=== PATIENT | male | born 1995 | race Caucasian/White ===

== ENCOUNTER 2018-05-12 23:07 | Emergency (ER) | payer SELFPAY ==
[~2018-05-12] VITALS: Ht 165.1 cm; Wt 59.1 kg
[2018-05-13 00:22] LABS: APPEARANCE,URINE CLEAR (CLEAR); BILIRUBIN,URINE NEGATIVE (NEGATIVE); GLUCOSE, URINE (UA) NEGATIVE (NEGATIVE); KETONES,URINE NEGATIVE (NEGATIVE); LEUKOCYTE ESTERASE ,URINE NEGATIVE (NEGATIVE); NITRATE,URINE NEGATIVE (NEGATIVE); OCCULT BLOOD,URINE NEGATIVE (NEGATIVE); PROTEIN,URINE NEGATIVE (NEGATIVE); UROBILINOGEN,URINE 0.2 mg/dL (<=1.0)
[2018-05-13 00:27] LABS: AMPHET/METH SCREEN,URINE NEGATIVE (NEGATIVE); BARBITURATE SCREEN, URINE NEGATIVE (NEGATIVE); BENZODIAZEPINES SCREEN,URINE NEGATIVE (NEGATIVE); CANNABINOID SCREEN,URINE POSITIVE (NEGATIVE); COCAINE SCREEN,URINE NEGATIVE (NEGATIVE); METHADONE SCREEN, URINE NEGATIVE (NEGATIVE); OPIATE SCREEN,URINE NEGATIVE (NEGATIVE)
[2018-05-13 00:28] LABS: PHENCYCLIDINE SCREEN,URINE NEGATIVE (NEGATIVE)
[2018-05-13] MEDS ORDERED: SODIUM CHLORIDE 0.9% 1,000 ML IV ONE (03:45)
[2018-05-13 04:46] LABS: BASOPHILS % (AUTO) 0.4 % (0.0-2.0); EOSINOPHILS % (AUTO) 0.8 % (1.0-6.0); HEMATOCRIT 44.4 % (41-53); HEMOGLOBIN 14.8 g/dL (13.5-17.5); LYMPHOCYTES # (AUTO) 2.1 K/uL (1.0-4.8); LYMPHOCYTES % (AUTO) 20.4 % (22.0-44.0); MEAN CORPUSCULAR HEMOGLOBIN 27.5 pg (26.0-34.0); MEAN CORPUSCULAR HGB CONC 33.4 G/dL (31.0-37.0); MEAN CORPUSCULAR VOLUME 82 fL (80-100); MONOCYTES # (AUTO) 0.8 K/uL (0.1-1.0); MONOCYTES % (AUTO) 7.7 % (2.0-9.0); NEUTROPHILS # (AUTO) 7.2 K/uL (1.8-7.7); NEUTROPHILS % (AUTO) 70.7 % (40.0-70.0); PLATELET COUNT (AUTO) 286 K/uL (150-450); RED BLOOD CELL COUNT(AUTO) 5.39 MIL/uL (4.50-5.90); RED CELL DISTRIBUTION WIDTH 13.1 % (11.5-14.5)
[2018-05-13 04:56] LABS: ANION GAP 3 mmol/L (8-16); CALCIUM, TOTAL 8.7 mg/dL (8.8-10.5); CARBON DIOXIDE 33 mmol/L (22-29); CHLORIDE 102 mmol/L (98-107); CREATININE 0.71 mg/dL (0.60-1.30); GLOMERULAR FILTR. RATE CALC > 60 mL/min (>60); GLUCOSE,RANDOM 106 mg/dL (70-110); POTASSIUM 3.4 mmol/L (3.5-5.1); SODIUM SERUM 138 mmol/L (136-145); UREA NITROGEN, BLOOD 15 mg/dL (7-18)
[2018-05-13 05:09] LABS: SALICYLATE < 2.8 mg/dL (2.8-20.0)
[2018-05-13] MEDS ORDERED: POTASSIUM CHLORIDE 20 MEQ ER TABLET PO ONE (05:15)
[2018-05-13 05:20] LABS: ALANINE AMINOTRANSFERASE 54 U/L (12-78); ALBUMIN 3.7 g/dL (3.4-5.0); ALKALINE PHOSPHATASE 76 U/L (46-116); ASPARTATE AMINOTRANSFERASE 39 U/L (15-37); BILIRUBIN,TOTAL 0.1 mg/dL (0.1-1.0); CKMB RELATIVE INDEX 1.7 % (0.0-4.0); CREATINE KINASE MB 13.8 ng/mL (0-5); CREATINE KINASE, TOTAL 825 U/L (39-308); LIPASE 161 U/L (73-393); TOTAL PROTEIN, SERUM 6.8 g/dL (6.4-8.2)
[2018-05-13 05:22] LABS: ACETAMINOPHEN < 2 mcg/mL (10-30)
[2018-05-13 08:14] VITALS: BP 132/76
== END 2018-05-13 08:17 | disposition home or self-care (01) ==
LOC: EMS 23:09
DX: F31.9 Bipolar disorder, unspecified (principal); G47.00 Insomnia, unspecified; R46.89 Other symptoms and signs involving appearance and behavior; E87.6 Hypokalemia; R53.1 Weakness; F15.90 Other stimulant use, unspecified, uncomplicated; F11.90 Opioid use, unspecified, uncomplicated; F12.90 Cannabis use, unspecified, uncomplicated; F17.210 Nicotine dependence, cigarettes, uncomplicated
CPT/HCPCS: 36415; 70450; 80053; 80307; 81003; 82550; 82553; 83690; 85025; 93005; 96360; 96361; 99285; 99406; G0480 ×2; G0481; J7030

== ENCOUNTER 2018-08-20 22:03 | Inpatient (IN) | payer MEDICAID ==
[~2018-08-20] VITALS: Ht 165.1 cm; Wt 60.5 kg
[2018-08-20] MEDS ORDERED: LORazepam 2 MG/ML VIAL ONE (22:15)
[2018-08-20] MEDS ORDERED: HALOPERIDOL LACTATE 5 MG/ML VIAL ONE (22:16)
[2018-08-20] MEDS ORDERED: DiphenhydrAMINE HCL 50 MG/ML VIAL ONE (22:16)
[2018-08-20] MEDS ORDERED: HALOPERIDOL LACTATE 5 MG/ML VIAL IM ONE (22:30)
[2018-08-20] MEDS ORDERED: DiphenhydrAMINE HCL 50 MG/ML VIAL IM ONE (22:30)
[2018-08-20] MEDS ORDERED: LORazepam 2 MG/ML VIAL IM ONE (22:30)
[2018-08-20 23:36] LABS: BASOPHILS % (AUTO) 0.6 % (0.0-2.0); EOSINOPHILS % (AUTO) 1.3 % (1.0-6.0); HEMATOCRIT 45.2 % (41-53); HEMOGLOBIN 15.4 g/dL (13.5-17.5); LYMPHOCYTES # (AUTO) 2.4 K/uL (1.0-4.8); LYMPHOCYTES % (AUTO) 23.7 % (22.0-44.0); MEAN CORPUSCULAR HEMOGLOBIN 28.4 pg (26.0-34.0); MEAN CORPUSCULAR VOLUME 84 fL (80-100); MONOCYTES # (AUTO) 0.7 K/uL (0.1-1.0); MONOCYTES % (AUTO) 6.5 % (2.0-9.0); NEUTROPHILS % (AUTO) 67.9 % (40.0-70.0); PLATELET COUNT (AUTO) 300 K/uL (150-450); RED BLOOD CELL COUNT(AUTO) 5.42 MIL/uL (4.50-5.90); RED CELL DISTRIBUTION WIDTH 12.6 % (11.5-14.5)
[2018-08-20 23:47] LABS: ANION GAP 7 mmol/L (8-16); CALCIUM, TOTAL 8.9 mg/dL (8.8-10.5); CARBON DIOXIDE 28 mmol/L (22-29); CHLORIDE 102 mmol/L (98-107); GLOMERULAR FILTR. RATE CALC > 60 mL/min (>60); GLUCOSE,RANDOM 91 mg/dL (70-110); POTASSIUM 3.8 mmol/L (3.5-5.1); SODIUM SERUM 137 mmol/L (136-145); UREA NITROGEN, BLOOD 18 mg/dL (7-18)
[2018-08-20 23:53] LABS: ALANINE AMINOTRANSFERASE 83 U/L (12-78); ALBUMIN 3.9 g/dL (3.4-5.0); ALKALINE PHOSPHATASE 68 U/L (46-116); ASPARTATE AMINOTRANSFERASE 121 U/L (15-37); BILIRUBIN,TOTAL 0.5 mg/dL (0.1-1.0); TOTAL PROTEIN, SERUM 7.3 g/dL (6.4-8.2)
[2018-08-21 00:44] LABS: AMPHET/METH SCREEN,URINE NEGATIVE (NEGATIVE); BARBITURATE SCREEN, URINE NEGATIVE (NEGATIVE); BENZODIAZEPINES SCREEN,URINE NEGATIVE (NEGATIVE); CANNABINOID SCREEN,URINE POSITIVE (NEGATIVE); COCAINE SCREEN,URINE NEGATIVE (NEGATIVE); METHADONE SCREEN, URINE NEGATIVE (NEGATIVE); OPIATE SCREEN,URINE NEGATIVE (NEGATIVE); PHENCYCLIDINE SCREEN,URINE NEGATIVE (NEGATIVE)
[2018-08-21] MEDS ORDERED: ZOLPIDEM TARTRATE 10 MG TABLET PO PRN (04:30)
[2018-08-21 14:45] VITALS: BP 107/75
[2018-08-21 16:00] VITALS: BP 115/66
[2018-08-22 06:38] VITALS: BP 100/60
[2018-08-22 08:11] VITALS: BP 119/74
[2018-08-22 08:18] LABS: HEMOGLOBIN A1C 5.1 % (4.5-6.2)
[2018-08-22 08:36] LABS: CHOL/HDL RATIO 2.6 (4.2-7.3); FREE T4 (FREE THYROXINE) 0.99 ng/dL (0.76-1.46)
[2018-08-22 08:37] LABS: THYROID STIMULATING HORMONE 1.13 uIU/mL (0.36-3.74)
[2018-08-22] MEDS ORDERED: PETROLATUM,WHITE 71 GM JELLY TP PRN (12:30)
[2018-08-22] MEDS ORDERED: NICOTINE 14 MG/24 HOUR PATCH TD PRN (12:30)
[2018-08-22] MEDS ORDERED: GuaiFENesin/D-METHORPHAN [SUGAR-FREE] 200-20MG/10 ML SYRUP UDCUP PO PRN (12:30)
[2018-08-22] MEDS ORDERED: ACETAMINOPHEN 325 MG TABLET PO PRN (12:30)
[2018-08-22] MEDS ORDERED: DOCUSATE SODIUM 100 MG CAPSULE PO PRN (12:30)
[2018-08-22] MEDS ORDERED: LOPERAMIDE HCL 2 MG CAPSULE PO PRN (12:30)
[2018-08-22] MEDS ORDERED: ONDANSETRON HCL 4 MG TABLET PO PRN (12:30)
[2018-08-22] MEDS ORDERED: IBUPROFEN 400 MG TABLET PO PRN (12:30)
[2018-08-22] MEDS ORDERED: MAG HYDROX/AL HYDROX/SIMETH ES 30 ML SUSPENSION UDCUP PO PRN (12:30)
[2018-08-22] MEDS ORDERED: ALBUTEROL SULFATE HFA 90 MCG/PUFF 8 GM INHALER IH PRN (12:30)
[2018-08-22] MEDS ORDERED: CloNIDine HCL 0.1 MG TABLET PO PRN (12:30)
[2018-08-22] MEDS ORDERED: MAGNESIUM HYDROXIDE SUSPENSION 30 ML UDCUP PO PRN (12:30)
[2018-08-22 16:00] VITALS: BP 128/66
[2018-08-22] MEDS: LORazepam 2 MG TABLET PO PRN (16:28)
[2018-08-22] MEDS: OLANZapine 5 MG TABLET PO SCH (16:28)
[2018-08-23 01:50] VITALS: BP 123/78
[2018-08-23 08:09] VITALS: BP 124/76
[2018-08-23] MEDS: OLANZapine 5 MG TABLET PO SCH (09:38)
[2018-08-23] MEDS: LORazepam 2 MG TABLET PO PRN (16:28)
[2018-08-23] MEDS: OLANZapine 7.5 MG TABLET PO SCH (16:28)
[2018-08-23] MEDS ORDERED: OLANZapine 5 MG TABLET PO SCH (17:00)
[2018-08-23 17:04] VITALS: BP 115/83
[2018-08-24 07:26] VITALS: BP 118/78
[2018-08-24 08:22] VITALS: BP 127/75
[2018-08-24] MEDS: HALOPERIDOL 5 MG TABLET PO PRN ×2 (08:36→16:59)
[2018-08-24] MEDS: LORazepam 2 MG TABLET PO PRN ×2 (08:36→16:59)
[2018-08-24] MEDS: OLANZapine 7.5 MG TABLET PO SCH (08:36)
[2018-08-24 16:08] VITALS: BP 109/61
[2018-08-24] MEDS: OLANZapine 10 MG TABLET PO SCH (16:59)
[2018-08-25 06:18] VITALS: BP 100/63
[2018-08-25] MEDS: OLANZapine 10 MG TABLET PO SCH ×2 (08:09→16:14)
[2018-08-25 08:41] VITALS: BP 126/74
[2018-08-25] MEDS: HALOPERIDOL 5 MG TABLET PO PRN (10:48)
[2018-08-25] MEDS: LORazepam 2 MG TABLET PO PRN (10:48)
[2018-08-25 16:19] VITALS: BP 110/72
[2018-08-25] MEDS ORDERED: OLAN10TA3 PO (16:54)
== END 2018-08-25 19:15 | disposition home or self-care (01) | DRG 750 ==
LOC: EMS 22:04 → B3A 08-21 13:22
PROVIDERS: ADMIT Psychiatry & Neurology Psychiatry; ATTEND Psychiatry & Neurology Psychiatry
DX: F20.0 Paranoid schizophrenia (principal); Z78.1 Physical restraint status; F10.10 Alcohol abuse, uncomplicated; F43.10 Post-traumatic stress disorder, unspecified; F12.90 Cannabis use, unspecified, uncomplicated; F17.210 Nicotine dependence, cigarettes, uncomplicated; F11.90 Opioid use, unspecified, uncomplicated; F14.90 Cocaine use, unspecified, uncomplicated; R74.0 Nonspecific elevation of levels of transaminase and lactic acid dehydrogenase [LDH]; Z28.21 Immunization not carried out because of patient refusal; Z59.0 Homelessness; Z71.41 Alcohol abuse counseling and surveillance of alcoholic; Z71.51 Drug abuse counseling and surveillance of drug abuser; Z91.19 Patient's noncompliance with other medical treatment and regimen; Z79.899 Other long term (current) drug therapy
CPT/HCPCS: 51701; 80074; 83036; 84439; 84443; 96372; 99291; G0480; J1200; J1630; J2060

== ENCOUNTER 2018-11-17 22:31 | Emergency (ER) | payer MEDICAID ==
[~2018-11-17] VITALS: Ht 167.6 cm; Wt 81.8 kg
[~2018-11-17 22:31] MED LIST: OLAN10TA3 PO
[2018-11-18] MEDS ORDERED: NAPROXEN 250 MG TABLET PO ONE (05:30)
[2018-11-18 05:39] VITALS: BP 126/70
== END 2018-11-18 05:40 | disposition home or self-care (01) ==
LOC: EMS 22:32
DX: S22.31XA Fracture of one rib, right side, initial encounter for closed fracture (principal); M25.572 Pain in left ankle and joints of left foot; F31.9 Bipolar disorder, unspecified; F12.90 Cannabis use, unspecified, uncomplicated; Z59.0 Homelessness; Y35.811A Legal intervention involving manhandling, law enforcement official injured, initial encounter; Y93.89 Activity, other specified; Y92.89 Other specified places as the place of occurrence of the external cause; Y99.8 Other external cause status
CPT/HCPCS: 71101

== ENCOUNTER 2019-06-21 16:07 | Emergency (ER) | payer MEDICAID ==
[~2019-06-21] VITALS: Ht 167.6 cm; Wt 63.6 kg
[2019-06-21] MEDS ORDERED: ACETAMINOPHEN 500 MG TABLET PO ONE (18:30)
[2019-06-21] MEDS ORDERED: CEPHALEXIN MONOHYDRATE 500 MG CAPSULE PO ONE (18:30)
[2019-06-21 19:02] VITALS: BP 118/70
== END 2019-06-21 19:57 | disposition home or self-care (01) ==
LOC: EMS 16:07
DX: S91.002A Unspecified open wound, left ankle, initial encounter (principal); S01.00XA Unspecified open wound of scalp, initial encounter; R03.0 Elevated blood-pressure reading, without diagnosis of hypertension; F31.9 Bipolar disorder, unspecified; F12.90 Cannabis use, unspecified, uncomplicated; W22.01XA Walked into wall, initial encounter; Y93.89 Activity, other specified; Y92.89 Other specified places as the place of occurrence of the external cause; Y99.8 Other external cause status

== ENCOUNTER 2020-04-03 09:33 | Inpatient (IN) | payer MEDICAID ==
[~2020-04-03] VITALS: Ht 172.7 cm; Wt 56.2 kg
[2020-04-03] MEDS ORDERED: ZOLPIDEM TARTRATE 10 MG TABLET PO PRN (12:15)
[2020-04-03] MEDS ORDERED: HALOPERIDOL 5 MG TABLET PO PRN (12:15)
[2020-04-03 12:16] LABS: BASOPHILS % (AUTO) 0.5 % (0.0-2.0); EOSINOPHILS % (AUTO) 1.4 % (1.0-6.0); HEMATOCRIT 45.5 % (41-53); HEMOGLOBIN 14.7 g/dL (13.5-17.5); LYMPHOCYTES # (AUTO) 2.3 K/uL (1.0-4.8); LYMPHOCYTES % (AUTO) 27.6 % (22.0-44.0); MEAN CORPUSCULAR HEMOGLOBIN 27.2 pg (26.0-34.0); MEAN CORPUSCULAR HGB CONC 32.4 G/dL (31.0-37.0); MEAN CORPUSCULAR VOLUME 84 fL (80-100); MONOCYTES # (AUTO) 0.7 K/uL (0.1-1.0); MONOCYTES % (AUTO) 8.5 % (2.0-9.0); NEUTROPHILS # (AUTO) 5.3 K/uL (1.8-7.7); PLATELET COUNT (AUTO) 336 K/uL (150-450); RED CELL DISTRIBUTION WIDTH 13.4 % (11.5-14.5)
[2020-04-03 12:22] LABS: ANION GAP 10 mmol/L (8-16); CARBON DIOXIDE 26 mmol/L (22-29); CHLORIDE 107 mmol/L (98-107); CREATININE 0.64 mg/dL (0.60-1.30); GLOMERULAR FILTR. RATE CALC > 60 mL/min (>60); GLUCOSE,RANDOM 69 mg/dL (70-110); POTASSIUM 3.9 mmol/L (3.5-5.1); SODIUM SERUM 143 mmol/L (136-145); UREA NITROGEN, BLOOD 20 mg/dL (7-18)
[2020-04-03 12:30] LABS: ALANINE AMINOTRANSFERASE 32 U/L (12-78); ALBUMIN 4.3 g/dL (3.4-5.0); ALKALINE PHOSPHATASE 75 U/L (46-116); ASPARTATE AMINOTRANSFERASE 23 U/L (15-37); BILIRUBIN,TOTAL 0.7 mg/dL (0.1-1.0); TOTAL PROTEIN, SERUM 7.8 g/dL (6.4-8.2)
[2020-04-03] MEDS ORDERED: LORazepam 2 MG TABLET PO ONE (13:45)
[2020-04-03] MEDS ORDERED: DiphenhydrAMINE HCL 25 MG CAPSULE PO ONE (13:45)
[2020-04-03] MEDS ORDERED: HALOPERIDOL 5 MG TABLET PO ONE (13:45)
[2020-04-03 16:21] VITALS: BP 117/72
[2020-04-03] MEDS ORDERED: LOPERAMIDE HCL 2 MG CAPSULE PO PRN (19:45)
[2020-04-03] MEDS ORDERED: IBUPROFEN 400 MG TABLET PO PRN (19:45)
[2020-04-03] MEDS ORDERED: MAGNESIUM HYDROXIDE SUSPENSION 30 ML UDCUP PO PRN (19:45)
[2020-04-03] MEDS ORDERED: CloNIDine HCL 0.1 MG TABLET PO PRN (19:45)
[2020-04-03] MEDS ORDERED: PETROLATUM,WHITE 28 GM JELLY TP PRN (19:45)
[2020-04-03] MEDS ORDERED: ALBUTEROL SULFATE HFA 90 MCG/PUFF 8 GM INHALER IH PRN (19:45)
[2020-04-03] MEDS ORDERED: NICOTINE 14 MG/24 HOUR PATCH TD PRN (19:45)
[2020-04-03] MEDS ORDERED: MAG HYDROX/AL HYDROX/SIMETH ES 30 ML SUSPENSION UDCUP PO PRN (19:45)
[2020-04-03] MEDS ORDERED: ONDANSETRON HCL 4 MG TABLET PO PRN (19:45)
[2020-04-03] MEDS ORDERED: GuaiFENesin/D-METHORPHAN [SUGAR-FREE] 200-20MG/10 ML SYRUP UDCUP PO PRN (19:45)
[2020-04-03] MEDS ORDERED: ACETAMINOPHEN 325 MG TABLET PO PRN (19:45)
[2020-04-03] MEDS ORDERED: DOCUSATE SODIUM 100 MG CAPSULE PO PRN (19:45)
[2020-04-04 06:41] VITALS: BP 106/59
[2020-04-04 08:09] VITALS: BP 108/62
[2020-04-04 08:31] LABS: CHOL/HDL RATIO 1.9 (4.2-7.3); FREE T4 (FREE THYROXINE) 1.12 ng/dL (0.76-1.46); THYROID STIMULATING HORMONE 1.51 uIU/mL (0.36-3.74)
[2020-04-04 10:15] VITALS: BP 113/61
[2020-04-04 16:08] VITALS: BP 130/60
[2020-04-04] MEDS: LORazepam 2 MG TABLET PO PRN (16:22)
[2020-04-04] MEDS: ARIPiprazole 10 MG TABLET PO SCH (20:37)
[2020-04-04] MEDS: TraZODone HCL 50 MG TABLET PO SCH (20:37)
[2020-04-04] MEDS: QUEtiapine FUMARATE 200 MG TABLET PO SCH (20:37)
[2020-04-05 05:07] VITALS: BP 122/62
[2020-04-05 08:09] VITALS: BP 115/59
[2020-04-05 16:13] VITALS: BP 125/69
[2020-04-05] MEDS: TraZODone HCL 50 MG TABLET PO SCH (20:31)
[2020-04-05] MEDS: ARIPiprazole 10 MG TABLET PO SCH (20:31)
[2020-04-05] MEDS: QUEtiapine FUMARATE 200 MG TABLET PO SCH (20:31)
[2020-04-06 05:34] VITALS: BP 114/64
[2020-04-06 16:16] VITALS: BP 111/60
[2020-04-06] MEDS: ARIPiprazole 10 MG TABLET PO SCH (20:25)
[2020-04-06] MEDS: QUEtiapine FUMARATE 200 MG TABLET PO SCH (20:25)
[2020-04-06] MEDS: TraZODone HCL 50 MG TABLET PO SCH (20:25)
[2020-04-07 05:35] VITALS: BP 116/62
[2020-04-07 08:26] VITALS: BP 121/57
[2020-04-07 16:04] VITALS: BP 138/79
[2020-04-07] MEDS: TraZODone HCL 50 MG TABLET PO SCH (20:44)
[2020-04-07] MEDS: ARIPiprazole 10 MG TABLET PO SCH (20:44)
[2020-04-07] MEDS: QUEtiapine FUMARATE 200 MG TABLET PO SCH (20:44)
[2020-04-08 04:59] VITALS: BP 121/68
[2020-04-08] MEDS: LORazepam 2 MG TABLET PO PRN ×2 (08:08→17:03)
[2020-04-08 09:00] VITALS: BP 111/60
[2020-04-08 16:06] VITALS: BP 110/63
[2020-04-08] MEDS: TraZODone HCL 50 MG TABLET PO SCH (20:58)
[2020-04-08] MEDS: ARIPiprazole 10 MG TABLET PO SCH (20:58)
[2020-04-08] MEDS: QUEtiapine FUMARATE 200 MG TABLET PO SCH (20:58)
[2020-04-09 08:04] VITALS: BP 102/63
[2020-04-09] MEDS ORDERED: ARIP10TA8 PO (10:28)
[2020-04-09] MEDS ORDERED: TRAZ-252 PO (10:28)
[2020-04-09] MEDS ORDERED: QUET200T PO (10:28)
== END 2020-04-09 13:00 | disposition home or self-care (01) | DRG 750 ==
LOC: EMS 09:40 → 3EI 12:08 → B3A 12:09
PROVIDERS: ADMIT Psychiatry & Neurology Child & Adolescent Psychiatry; ATTEND Psychiatry & Neurology Child & Adolescent Psychiatry
DX: F25.1 Schizoaffective disorder, depressive type (principal); I95.9 Hypotension, unspecified; R45.851 Suicidal ideations; Z59.0 Homelessness; F10.10 Alcohol abuse, uncomplicated; F12.90 Cannabis use, unspecified, uncomplicated; F31.9 Bipolar disorder, unspecified; F43.10 Post-traumatic stress disorder, unspecified; Z71.41 Alcohol abuse counseling and surveillance of alcoholic; G47.00 Insomnia, unspecified; F15.90 Other stimulant use, unspecified, uncomplicated
CPT/HCPCS: 84439; 84443; 87081; G0480

== ENCOUNTER 2020-04-30 12:04 | Emergency (ER) | payer MEDICAID ==
[~2020-04-30] VITALS: Ht 152.4 cm; Wt 59.1 kg
[~2020-04-30 12:04] MED LIST changes: +ARIP10TA8 PO; -OLAN10TA3 PO; +QUET200T PO; +TRAZ-252 PO
[2020-04-30 15:15] LABS: BASOPHILS % (AUTO) 0.5 % (0.0-2.0); HEMATOCRIT 45.9 % (41-53); HEMOGLOBIN 14.9 g/dL (13.5-17.5); LYMPHOCYTES # (AUTO) 2.8 K/uL (1.0-4.8); LYMPHOCYTES % (AUTO) 37.5 % (22.0-44.0); MEAN CORPUSCULAR HEMOGLOBIN 27.7 pg (26.0-34.0); MEAN CORPUSCULAR HGB CONC 32.5 G/dL (31.0-37.0); MEAN CORPUSCULAR VOLUME 85 fL (80-100); MONOCYTES # (AUTO) 0.7 K/uL (0.1-1.0); MONOCYTES % (AUTO) 9.7 % (2.0-9.0); NEUTROPHILS # (AUTO) 3.8 K/uL (1.8-7.7); NEUTROPHILS % (AUTO) 51.3 % (40.0-70.0); PLATELET COUNT (AUTO) 333 K/uL (150-450); RED BLOOD CELL COUNT(AUTO) 5.39 MIL/uL (4.50-5.90); RED CELL DISTRIBUTION WIDTH 13.2 % (11.5-14.5)
[2020-04-30 15:26] LABS: ANION GAP 12 mmol/L (8-16); CARBON DIOXIDE 24 mmol/L (22-29); CHLORIDE 103 mmol/L (98-107); CREATININE 0.67 mg/dL (0.60-1.30); GLOMERULAR FILTR. RATE CALC > 60 mL/min (>60); GLUCOSE,RANDOM 80 mg/dL (70-110); POTASSIUM 3.6 mmol/L (3.5-5.1); SODIUM SERUM 139 mmol/L (136-145); UREA NITROGEN, BLOOD 15 mg/dL (7-18)
[2020-04-30 15:33] LABS: ALANINE AMINOTRANSFERASE 27 U/L (12-78); ALBUMIN 4.5 g/dL (3.4-5.0); ALKALINE PHOSPHATASE 80 U/L (46-116); ASPARTATE AMINOTRANSFERASE 21 U/L (15-37); BILIRUBIN,TOTAL 0.5 mg/dL (0.1-1.0); TOTAL PROTEIN, SERUM 8.1 g/dL (6.4-8.2)
[2020-04-30 17:00] VITALS: BP 129/82
== END 2020-04-30 17:29 | disposition home or self-care (01) ==
LOC: EMS 12:05
DX: F31.9 Bipolar disorder, unspecified (principal); F15.90 Other stimulant use, unspecified, uncomplicated; F12.90 Cannabis use, unspecified, uncomplicated; Z79.899 Other long term (current) drug therapy
CPT/HCPCS: 36415; 80053; 85025; 99285; G0480

== ENCOUNTER 2020-07-10 17:53 | Emergency (ER) | payer MEDICAID ==
[~2020-07-10] VITALS: Ht 162.6 cm; Wt 59.1 kg
[2020-07-10 18:05] VITALS: BP 113/68
[2020-07-10] MEDS ORDERED: IBUPROFEN 600 MG TABLET PO ONE (19:30)
== END 2020-07-10 20:38 | disposition home or self-care (01) ==
LOC: EMS 17:53
DX: G89.29 Other chronic pain (principal); M79.641 Pain in right hand; F31.9 Bipolar disorder, unspecified; F17.210 Nicotine dependence, cigarettes, uncomplicated; F12.90 Cannabis use, unspecified, uncomplicated; F19.90 Other psychoactive substance use, unspecified, uncomplicated
CPT/HCPCS: Z7502

== ENCOUNTER 2023-12-01 13:53 | Inpatient (IN) | payer MEDICAID ==
[~2023-12-01] VITALS: Ht 165.1 cm; Wt 54.9 kg
[~2023-12-01 13:53] MED LIST changes: +ARIP10TA38 PO; -ARIP10TA8 PO
[2023-12-01 15:36] LABS: GLUCOMETER DEV NAME(LOC) POC.BV; POC SARS-COV2 AG, FIA NEGATIVE (NEGATIVE)
[2023-12-01 16:45] VITALS: BP 118/70; PULSE 72; RESP 17; TEMP 98; O2SAT 97
[2023-12-01 23:21] VITALS: BP 106/65; PULSE 90; RESP 18; TEMP 97.9; O2SAT 97
[2023-12-02] MEDS: HALOPERIDOL 5 MG TABLET PO PRN (08:02)
[2023-12-02] MEDS: LORazepam 2 MG TABLET PO PRN (08:02)
[2023-12-02 08:23] VITALS: BP 113/74; PULSE 82; RESP 17; TEMP 97.6; O2SAT 99
[2023-12-02 08:50] LABS: APPEARANCE,URINE TURBID (CLEAR); BILIRUBIN,URINE NEGATIVE (NEGATIVE); COLOR,URINE ORANGE (YELLOW); GLUCOSE, URINE (UA) NEGATIVE (NEGATIVE); KETONES,URINE NEGATIVE (NEGATIVE); LEUKOCYTE ESTERASE ,URINE NEGATIVE (NEGATIVE); NITRATE,URINE NEGATIVE (NEGATIVE); OCCULT BLOOD,URINE NEGATIVE (NEGATIVE); PH,URINE 5.5 (5.0-8.0); PH,URINE DRUG SCREEN 5.5 (5.0-8.0); PROTEIN,URINE 30-70 mg/dL (NEGATIVE); SPECIFIC GRAVITIY, URINE 1.032 (1.003-1.030); UROBILINOGEN,URINE <=1.0 mg/dL (<=1.0)
[2023-12-02 08:58] LABS: ALCOHOL, URINE DRUG SCREEN NEGATIVE (NEGATIVE); AMPHET/METH SCREEN,URINE POSITIVE (NEGATIVE); BARBITURATE SCREEN, URINE NEGATIVE (NEGATIVE); BENZODIAZEPINES SCREEN,URINE NEGATIVE (NEGATIVE); CANNABINOID SCREEN,URINE POSITIVE (NEGATIVE); COCAINE SCREEN,URINE NEGATIVE (NEGATIVE); METHADONE SCREEN, URINE NEGATIVE (NEGATIVE); OPIATE SCREEN,URINE NEGATIVE (NEGATIVE); PHENCYCLIDINE SCREEN,URINE NEGATIVE (NEGATIVE)
[2023-12-02] MEDS ORDERED: ONDANSETRON HCL 4 MG TABLET PO PRN (13:15)
[2023-12-02] MEDS ORDERED: MAG HYDROX/ALUMINUM HYD/SIMETH ES 30 ML SUSPENSION UDCUP PO PRN (13:15)
[2023-12-02] MEDS ORDERED: LOPERAMIDE HCL 2 MG CAPSULE PO PRN (13:15)
[2023-12-02] MEDS ORDERED: IBUPROFEN 400 MG TABLET PO PRN (13:15)
[2023-12-02] MEDS ORDERED: NICOTINE 14 MG/24 HOUR PATCH TD PRN (13:15)
[2023-12-02] MEDS ORDERED: CloNIDine HCL 0.1 MG TABLET PO PRN (13:15)
[2023-12-02] MEDS ORDERED: ALBUTEROL SULFATE HFA 90 MCG/PUFF 8 GM INHALER IH PRN (13:15)
[2023-12-02] MEDS ORDERED: PETROLATUM,WHITE 28 GM JELLY TP PRN (13:15)
[2023-12-02] MEDS ORDERED: GuaiFENesin/D-METHORPHAN [SUGAR-FREE] 200-20MG/10 ML SYRUP UDCUP PO PRN (13:15)
[2023-12-02] MEDS ORDERED: DOCUSATE SODIUM 100 MG CAPSULE PO PRN (13:15)
[2023-12-02] MEDS ORDERED: MAGNESIUM HYDROXIDE SUSPENSION 30 ML UDCUP PO PRN (13:15)
[2023-12-02] MEDS: TraZODone HCL 50 MG TABLET PO SCH (20:36)
[2023-12-02] MEDS: QUEtiapine FUMARATE 200 MG TABLET PO SCH (20:36)
[2023-12-02 21:26] VITALS: BP 132/75; PULSE 99; RESP 18; TEMP 98.6; O2SAT 99
[2023-12-03 09:38] VITALS: BP 96/55; PULSE 85; RESP 18; TEMP 97.8; O2SAT 98
[2023-12-03 22:22] VITALS: BP 100/62; PULSE 72; RESP 16; TEMP 98.2; O2SAT 99
[2023-12-04 09:56] VITALS: BP 105/57; PULSE 71; RESP 16; TEMP 97.4; O2SAT 99
[2023-12-04 21:01] VITALS: BP 122/57; PULSE 78; RESP 16; TEMP 98.7; O2SAT 99
[2023-12-05 08:22] LABS: BASOPHILS % (AUTO) 0.7 % (0.0-2.0); EOSINOPHILS % (AUTO) 4.1 % (1.0-6.0); HEMOGLOBIN 14.6 g/dL (13.5-17.5); LYMPHOCYTES # (AUTO) 3.4 K/uL (1.0-4.8); LYMPHOCYTES % (AUTO) 41.6 % (22.0-44.0); MEAN CORPUSCULAR HGB CONC 32.3 G/dL (31.0-37.0); MEAN CORPUSCULAR VOLUME 84 fL (80-100); MONOCYTES # (AUTO) 0.5 K/uL (0.1-1.0); MONOCYTES % (AUTO) 6.7 % (2.0-9.0); NEUTROPHILS # (AUTO) 3.8 K/uL (1.8-7.7); NEUTROPHILS % (AUTO) 46.9 % (40.0-70.0); PLATELET COUNT (AUTO) 314 K/uL (150-450); RED BLOOD CELL COUNT(AUTO) 5.39 MIL/uL (4.50-5.90); RED CELL DISTRIBUTION WIDTH 13.1 % (11.5-14.5); WHITE BLOOD COUNT (AUTO) 8.1 K/uL (4.5-11.0)
[2023-12-05 08:49] LABS: ALANINE AMINOTRANSFERASE 14 U/L (12-78); ALBUMIN 3.4 g/dL (3.4-5.0); ALKALINE PHOSPHATASE 96 U/L (46-116); ANION GAP 7 mmol/L (8-16); ASPARTATE AMINOTRANSFERASE 12 U/L (15-37); CALCIUM, TOTAL 8.8 mg/dL (8.8-10.5); CARBON DIOXIDE 27 mmol/L (22-29); CHLORIDE 103 mmol/L (98-107); CHOL/HDL RATIO 2.9 (4.2-7.3); CHOLESTEROL 133 mg/dL (131-200); CREATININE 0.59 mg/dL (0.60-1.30); GLOMERULAR FILTR. RATE CALC > 60 mL/min (>60); GLUCOSE,RANDOM 84 mg/dL (70-110); HDL CHOLESTEROL 46 mg/dL (40-60); POTASSIUM 4.3 mmol/L (3.5-5.1); SODIUM SERUM 137 mmol/L (136-145); TOTAL PROTEIN, SERUM 6.4 g/dL (6.4-8.2); TRIGLYCERIDES 112 mg/dL (15-150); UREA NITROGEN, BLOOD 14 mg/dL (7-18)
[2023-12-05 08:50] LABS: BILIRUBIN,TOTAL 0.1 mg/dL (0.1-1.0); FREE T4 (FREE THYROXINE) 0.83 ng/dL (0.76-1.46); LDL CHOL (CALC.) 65 mg/dL (0-130); T4 (THYROXINE) 6.6 mcg/dL (4.7-13.3); THYROID STIMULATING HORMONE 4.09 uIU/mL (0.36-3.74)
[2023-12-05 09:01] LABS: HEMOGLOBIN A1C 5.2 % (3.8-5.6)
[2023-12-05 12:35] VITALS: BP 121/76; PULSE 100; RESP 16; TEMP 98.5; O2SAT 99
[2023-12-05 20:11] VITALS: BP 125/65; PULSE 80; RESP 18; TEMP 97.8; O2SAT 99
[2023-12-05] MEDS: ZOLPIDEM TARTRATE 10 MG TABLET PO PRN (20:13)
[2023-12-06 08:10] VITALS: BP 126/75; PULSE 90; RESP 16; TEMP 97.7; O2SAT 97
[2023-12-06 20:09] VITALS: BP 111/61; PULSE 89; RESP 18; TEMP 97.6; O2SAT 98
[2023-12-07 08:10] VITALS: BP 128/70; PULSE 69; RESP 16; TEMP 97.8; O2SAT 97
[2023-12-07 20:18] VITALS: BP 116/64; PULSE 104; RESP 18; TEMP 97.8; O2SAT 99
[2023-12-08 08:12] VITALS: BP 123/70; PULSE 87; RESP 17; TEMP 98.2; O2SAT 100
[2023-12-08 20:29] VITALS: BP 133/78; PULSE 98; RESP 17; TEMP 97.9; O2SAT 99
[2023-12-09 08:37] VITALS: BP 114/71; PULSE 92; RESP 17; TEMP 97.6; O2SAT 99
[2023-12-09 21:19] VITALS: BP 129/76; PULSE 86; RESP 17; TEMP 96.7; O2SAT 98
[2023-12-09 23:31] VITALS: RESP 18
[2023-12-09] MEDS: ACETAMINOPHEN 325 MG TABLET PO PRN (23:31)
[2023-12-10 00:31] VITALS: RESP 18
[2023-12-10 08:05] VITALS: BP 118/74; PULSE 95; RESP 17; TEMP 97.3
[2023-12-10 20:25] VITALS: BP 135/66; PULSE 74; RESP 18; TEMP 97.5
[2023-12-11 08:21] VITALS: BP 131/79; PULSE 100; RESP 18; TEMP 98.7
[2023-12-11 20:01] VITALS: BP 116/75; PULSE 100; RESP 18; TEMP 97.5
[2023-12-12 08:27] VITALS: BP 131/76; PULSE 96; RESP 16; TEMP 97.9; O2SAT 100
[2023-12-12 21:20] VITALS: BP 112/59; PULSE 93; RESP 17; TEMP 97.3; O2SAT 99
[2023-12-13 08:04] VITALS: BP 122/73; PULSE 99; RESP 17; TEMP 98.9; O2SAT 100
[2023-12-13 20:00] VITALS: BP 117/74; PULSE 97; RESP 17; TEMP 97.4; O2SAT 96
[2023-12-14 09:23] LABS: APPEARANCE,URINE CLEAR (CLEAR); BILIRUBIN,URINE NEGATIVE (NEGATIVE); COLOR,URINE YELLOW (YELLOW); GLUCOSE, URINE (UA) NEGATIVE (NEGATIVE); KETONES,URINE NEGATIVE (NEGATIVE); LEUKOCYTE ESTERASE ,URINE NEGATIVE (NEGATIVE); NITRATE,URINE NEGATIVE (NEGATIVE); OCCULT BLOOD,URINE NEGATIVE (NEGATIVE); PROTEIN,URINE NEGATIVE (NEGATIVE); SPECIFIC GRAVITIY, URINE 1.022 (1.003-1.030); UROBILINOGEN,URINE <=1.0 mg/dL (<=1.0)
[2023-12-14 09:24] VITALS: BP 122/88; PULSE 100; RESP 16; TEMP 97.8; O2SAT 98
[2023-12-14 09:31] LABS: ALCOHOL, URINE DRUG SCREEN NEGATIVE (NEGATIVE); AMPHET/METH SCREEN,URINE NEGATIVE (NEGATIVE); BARBITURATE SCREEN, URINE NEGATIVE (NEGATIVE); BENZODIAZEPINES SCREEN,URINE NEGATIVE (NEGATIVE); CANNABINOID SCREEN,URINE NEGATIVE (NEGATIVE); COCAINE SCREEN,URINE NEGATIVE (NEGATIVE); METHADONE SCREEN, URINE NEGATIVE (NEGATIVE); OPIATE SCREEN,URINE NEGATIVE (NEGATIVE); PHENCYCLIDINE SCREEN,URINE NEGATIVE (NEGATIVE)
[2023-12-14] MEDS ORDERED: QUET200T30 PO (16:02)
[2023-12-14] MEDS ORDERED: TRAZ-252 PO (16:02)
== END 2023-12-14 14:10 | disposition home or self-care (01) | DRG 750 ==
LOC: B3A 15:42 → B2S 12-07 23:53
PROVIDERS: ADMIT Psychiatry & Neurology Psychiatry; ATTEND Psychiatry & Neurology Psychiatry
PROC: GZHZZZZ Group Psychotherapy (ICD-10-PCS; principal; 2023-12-05)
DX: F20.0 Paranoid schizophrenia (principal); R45.851 Suicidal ideations; E66.9 Obesity, unspecified; F15.10 Other stimulant abuse, uncomplicated; F12.10 Cannabis abuse, uncomplicated; R00.0 Tachycardia, unspecified; G47.00 Insomnia, unspecified; Z20.822 Contact with and (suspected) exposure to COVID-19; F10.10 Alcohol abuse, uncomplicated; Z79.899 Other long term (current) drug therapy; Z68.20 Body mass index [BMI] 20.0-20.9, adult; Z59.00 Homelessness unspecified
CPT/HCPCS: 80053; 80061; 80307; 81003; 83036; 84436; 84439; 84443; 85025; 86592